=== PATIENT | female | born 1960 | race Caucasian/White ===

== ENCOUNTER → 2016-10-20 | Outpatient (CLI) | payer MEDICARE | LOC: SP 13:06 | PROVIDERS: ATTEND Nurse Practitioner | DX: R60.0 Localized edema (principal) | CPT/HCPCS: 93970 ==

== ENCOUNTER → 2017-02-21 | Outpatient (CLI) | payer MEDICARE ==
--- NOTE | 2017-02-21 15:54 | RADIOLOGY REPORT (SQ) ---
EXAM DESCRIPTION: OS CALCIS/HEEL BILAT 2 VIEWS COMPLETED DATE/TIME: 02/21/2017 3:45 pm REASON FOR STUDY: PAIN IN UNSPECIFIED FOOT M79.673 PAIN IN UNSPECIFIED FOOT COMPARISON: None. NUMBER OF VIEWS: Four views TECHNIQUE: Plantar and lateral images acquired of the right and left calcaneous. LIMITATIONS: None. FINDINGS: MINERALIZATION: Normal. BONES: No acute fracture or dislocation. No worrisome bone lesions. No significant osteophytes. JOINTS: No erosions. No claire-articular osteopenia. No chondrocalcinosis. SOFT TISSUES: No swelling. No calcifications. OTHER: No other significant finding. IMPRESSION: NEGATIVE STUDY OF THE RIGHT AND LEFT CALCANEOUS. NO EXPLANATION FOR PAIN. TECHNICAL DOCUMENTATION: JOB ID: [id number] [employer]- All Rights Reserved
== END ==
LOC: OD 15:22
PROVIDERS: ATTEND Nurse Practitioner
DX: M79.673 Pain in unspecified foot (principal)

== ENCOUNTER → 2017-05-18 | Outpatient (CLI) | payer MEDICARE ==
--- NOTE | 2017-05-19 16:08 | RADIOLOGY REPORT (SQ) ---
EXAM DESCRIPTION: TIBIA FIBULA LEFT COMPLETED DATE/TIME: 05/18/2017 5:16 pm REASON FOR STUDY: UNSPECIFIED OPEN WOUND, LEFT LOWER LEG, SEQUELA COMPARISON: None. NUMBER OF VIEWS: Two views. TECHNIQUE: Two radiographic images acquired of the left tibia and fibula to include the knee and ank le in at least one projection. LIMITATIONS: None. FINDINGS: MINERALIZATION: Normal. BONES: No acute fracture or dislocation. No worrisome bone lesions. SOFT TISSUES: No obvious swelling or foreign body. No soft tissue gas. OTHER: No other significant finding. IMPRESSION: NEGATIVE STUDY OF THE LEFT TIBIA AND FIBULA. NO RADIOGRAPHIC EVIDENCE OF ACUTE INJURY. TECHNICAL DOCUMENTATION: JOB ID: [id number] [email or web address]- All Rights Reserved
== END ==
LOC: RAD 16:39
PROVIDERS: ATTEND Nurse Practitioner
DX: S81.802S Unspecified open wound, left lower leg, sequela (principal); X58.XXXS Exposure to other specified factors, sequela

== ENCOUNTER → 2017-09-19 | Outpatient (CLI) | payer MEDICARE | LOC: WI 13:10 | PROVIDERS: ATTEND Nurse Practitioner | DX: Z12.31 Encounter for screening mammogram for malignant neoplasm of breast (principal) | CPT/HCPCS: 77067; G0202 ==

== ENCOUNTER 2017-09-23 17:16 | Emergency (ER) | payer MEDICARE ==
[2017-09-23] MEDS ORDERED: ONDANSETRON 4 MG TAB.RAPDIS PO ONE (17:56)
[2017-09-23] MEDS ORDERED: HYDROXYZINE PAMOATE 50 MG CAPSULE PO ONE (17:57)
--- NOTE | 2017-09-23 17:59 | ER Document Report ---
ED Medical Screen (RME) - General Chief Complaint: Anxiety Stated Complaint: WITHDRAWAL SYMPTOMS Time Seen by Provider: 09/23/17 17:56 Notes: Patient says that she is feeling as if she is in withdrawal from Xanax. She is previously been taking Xanax 1 mg 4 times a day, but her primary care provider stopped writing her prescriptions for it last week and she has not had any Xanax for a week. She says that she is grinding her teeth and feeling her heart is racing. Is nauseated but not vomiting. No significant shortness of breath. Patient has a history of lumpectomy for breast cancer, hypertension, depression and anxiety. Patient smokes 1 pack per day. Patient also drinks alcohol and has been drinking today. TRAVEL OUTSIDE OF THE [place] IN LAST 30 DAYS: No - Related Data Allergies/Adverse Reactions: codeine Allergy (Verified 09/23/17 17:19) Physical Exam - Vital signs Vitals: Temp Pulse Resp BP Pulse Ox 98.8 F 87 20 171/89 H 99 09/23/17 17:23 09/23/17 17:23 09/23/17 17:23 09/23/17 17:23 09/23/17 17:23 Course - Vital Signs Vital signs: Temp Pulse Resp BP Pulse Ox 98.8 F 87 20 171/89 H 99 09/23/17 17:23 09/23/17 17:23 09/23/17 17:23 09/23/17 17:23 09/23/17 17:23 Doctor's Discharge - Discharge Instructions: Anxiety ([facility])
[2017-09-23 19:04] LABS: ABSOLUTE LYMPHOCYTES (AUTO) 1.1 10^3/uL (0.5-4.7); ABSOLUTE MONOCYTES (AUTO) 0.3 10^3/uL (0.1-1.4); ABSOLUTE NEUT (AUTO) 6.4 10^3/uL (1.7-8.2); BASOPHILS % (AUTO) 0.6 % (0-2); EOSINOPHILS % (AUTO) 0.1 % (0-6); HEMATOCRIT 41.6 % (36.0-47.0); HEMOGLOBIN 14.6 g/dL (12.0-15.5); HGB HCT DIFFERENCE 2.2; LYMPHOCYTES % (AUTO) 13.5 % (13-45); MEAN CORPUSCULAR HEMOGLOBIN 35.5 pg (27.0-33.4); MEAN CORPUSCULAR HGB CONC 35.1 g/dL (32.0-36.0); MEAN CORPUSCULAR VOLUME 101 fl (80-97); MONOCYTES % (AUTO) 4.1 % (3-13); RED BLOOD COUNT 4.11 10^6/uL (3.72-5.28); RED CELL DISTRIBUTION WIDTH 12.4 % (11.5-14.0); SEGMENTED NEUTROPHILS % (AUTO) 81.7 % (42-78); WHITE BLOOD COUNT 7.8 10^3/uL (4.0-10.5)
[2017-09-23 19:21] LABS: ALANINE AMINOTRANSFERASE 37 U/L (9-52); ALBUMIN 4.8 g/dL (3.5-5.0); ALKALINE PHOSPHATASE 75 U/L (38-126); ANION GAP 14 (5-19); ASPARTATE AMINO TRANSFERASE 24 U/L (14-36); BILIRUBIN,DIRECT 0.2 mg/dL (0.0-0.4); BILIRUBIN,TOTAL 0.6 mg/dL (0.2-1.3); BLOOD UREA NITROGEN 11 mg/dL (7-20); CARBON DIOXIDE 23 mmol/L (22-30); CHLORIDE 100 mmol/L (98-107); CREATININE RESULT 0.64 mg/dL (0.52-1.25); GLUCOSE 101 mg/dL (75-110); SODIUM 137.4 mmol/L (137-145); TOTAL PROTEIN 7.5 g/dL (6.3-8.2)
[2017-09-23 19:23] LABS: ALCOHOL < 10 mg/dL (NONE DETECTED)
[2017-09-23 19:23] LABS: URINE BARBITURATES SCREEN NEGATIVE; URINE METHADONE SCREEN NEGATIVE; URINE OPIATES LOW NEGATIVE; URINE PHENCYCLIDINE SCREEN NEGATIVE
[2017-09-23 19:26] LABS: APPEARANCE,URINE SLIGHTLY-CLOUDY; BILIRUBIN,URINE NEGATIVE (NEGATIVE); GLUCOSE, URINE NEGATIVE (NEGATIVE); KETONES,URINE 20 mg/dL (NEGATIVE); LEUKOCYTE ESTERASE,URINE SMALL (NEGATIVE); NITRITE,URINE NEGATIVE (NEGATIVE); PROTEIN,URINE NEGATIVE (NEGATIVE); URINE SPECIFIC GRAVITY 1.018; UROBILINOGEN,URINE NEGATIVE mg/dL (<2.0)
[2017-09-23 19:37] VITALS: BP 143/72
--- NOTE | 2017-09-23 19:50 | ER Document Report ---
ED General - General Chief Complaint: Anxiety Stated Complaint: WITHDRAWAL SYMPTOMS Time Seen by Provider: 09/23/17 17:56 Notes: Patient says that she is feeling as if she is in withdrawal from Xanax. She is previously been taking Xanax 1 mg 4 times a day, but her primary care provider stopped writing her prescriptions for it last week and she has not had any Xanax for a week. She says that she is grinding her teeth and feeling her heart is racing. Is nauseated but not vomiting. No significant shortness of breath. Patient has a history of lumpectomy for breast cancer, hypertension, depression and anxiety. Patient smokes 1 pack per day. Patient also drinks alcohol and has been drinking today. TRAVEL OUTSIDE OF THE [place] IN LAST 30 DAYS: No - Related Data Allergies/Adverse Reactions: codeine Allergy (Verified 09/23/17 17:19) Past Medical History - Social History Smoking Status: Current Every Day Smoker Frequency of alcohol use: Heavy Drug Abuse: Prescription drugs - See HPI. Family History: Reviewed & Not Pertinent Patient has suicidal ideation: No Patient has homicidal ideation: No Endocrine Medical History: Denies: Hx Diabetes Mellitus Type 1, Hx Diabetes Mellitus Type 2 Malignancy Medical History: Reports: Hx Breast Cancer Psychiatric Medical History: Reports: Hx Anxiety, Hx Depression Past Surgical History: Reports: Hx Breast Surgery Review of Systems - Review of Systems Notes: REVIEW OF SYSTEMS: CONSTITUTIONAL : Denies fever. Very anxious and agitated. However, patient is alert and oriented and mentally lucid. EENT: Denies eye, ear, nose or mouth or throat pain or other symptoms. CARDIOVASCULAR: Denies chest pain. Feels her heart is racing. RESPIRATORY: Denies cough, chest congestion, or shortness of breath. GASTROINTESTINAL: Denies abdominal but is nauseated, not vomiting, and no diarrhea. GENITOURINARY: Denies difficulty or painful urinating, urinary frequency, blood in urine. MUSCULOSKELETAL: Denies back or neck pain. Denies joint pain or swelling. SKIN: Denies rash or skin lesions. NEUROLOGICAL: Denies LOC or altered mental status. Denies headache. Denies sensory loss or motor deficits. ALL OTHER SYSTEMS REVIEWED AND NEGATIVE. Physical Exam - Vital signs Vitals: Temp Pulse Resp BP Pulse Ox 98.8 F 87 20 171/89 H 99 09/23/17 17:23 09/23/17 17:23 09/23/17 17:23 09/23/17 17:23 09/23/17 17:23 Interpretation: Hypertensive - Mild - Notes Notes: PHYSICAL EXAMINATION: GENERAL: Well-appearing, i anxious and agitated and, at times, tearful. HEAD: Atraumatic, normocephalic. EYES: Pupils equal round and reactive to light, extraocular movements intact. ENT: oropharynx clear without exudates. Moist mucous membranes. NECK: Normal range of motion, supple. LUNGS: Breath sounds clear and equal bilaterally. A few scattered rhonchi are present bilaterally. HEART: Regular rate and rhythm without murmurs. ABDOMEN: Soft, nontender. No guarding or rebound. BACK: No tenderness throughout entire back. EXTREMITIES: Normal range of motion without pain. No swelling and no edema. Negative Homans bilaterally. NEUROLOGICAL: Normal speech, normal gait. Normal sensory, motor, and reflex exams. Awake, alert, and oriented x3. Cranial nerves normal. PSYCH: Anxious and somewhat agitated, but in control of her mental faculties. Denies suicidal thoughts. SKIN: Warm, dry, no rashes. Course - Re-evaluation Re-evalutation: 09/23/17 19:45 Patient says she feels a lot better except she now has a headache. Declined Tylenol. - Vital Signs Vital signs: Temp Pulse Resp BP Pulse Ox 98.2 F 77 16 143/72 H 96 09/23/17 19:37 09/23/17 19:37 09/23/17 19:37 09/23/17 19:37 09/23/17 19:37 - Laboratory Result Diagrams: 09/23/17 18:47 09/23/17 18:47 Laboratory results interpreted by me: 09/23/17 09/23/17 18:05 18:47 MCV 101 H MCH 35.5 H Seg Neutrophils % 81.7 H Urine Ketones 20 H Urine Blood SMALL H Ur Leukocyte Esterase SMALL H Discharge - Discharge Clinical Impression: Substance abuse withdrawal, Anxiety Condition: Stable Disposition: HOME, SELF-CARE Instructions: Anxiety ([facility]) Additional Instructions: Anxiety The physician feels that some of your health problems are being caused by anxiety. Anxiety affects your health in many ways. Anxiety alone can cause palpitations, sweats, chest pains, abdominal pains, shortness of breath, and headaches. It contributes to ulcer disease, high blood pressure, irritable bowel syndrome, and has been shown to cause flare-ups of many other diseases. Anxiety is not a simple disorder to treat. If the anxiety is due to recent life stresses, you may simply need time to "work through" the changes. If the anxiety is due to an underlying unhappiness with yourself or due to psychiatric disturbance, professional help will be needed. Your physician can refer you for further help if needed. Anti-anxiety medication is occasionally given if the stress is acute or if you are having trouble sleeping. Chronic or frequent use of these medications is not a good idea because the body becomes reliant on it, preventing you from dealing with life's normal stresses. INSTRUCTIONS FOR HOME CARE FOLLOWING DRUG OVERDOSAGE: The doctor feels it's safe for you to go home. You will need to be observed. If charcoal and a laxative was given to you, expect some loose black stools soon. Take no medications unless approved by a physician, including alcohol. If drowsy, lie on your stomach or side for sleeping to avoid aspiration if vomiting occurs. Take only liquids by mouth until there is no more nausea. You apparently have been taking too much of your Xanax. It would be best if you stop taking it entirely and not take it in the future. I am writing you a prescription for Vistaril to take as a substitute. It is a non-addicting medication that will help relax you and get you through the withdrawal symptoms. FOLLOW-UP CARE: If you have been referred to a physician for follow-up care, call the physician s office for an appointment as you were instructed or within the next two days. If you experience worsening or a significant change in your symptoms, notify the physician immediately or return to the Emergency Department at any time for re-evaluation. Prescriptions: Hydroxyzine Pamoate [Vistaril 50 mg Capsule] 50 mg PO Q6HP PRN #30 capsule PRN Reason:
== END 2017-09-23 19:37 | disposition home or self-care (01) ==
LOC: ER 17:16
DX: F13.239 Sedative, hypnotic or anxiolytic dependence with withdrawal, unspecified (principal); F41.9 Anxiety disorder, unspecified; R11.0 Nausea; R51 Headache; R09.89 Other specified symptoms and signs involving the circulatory and respiratory systems; I10 Essential (primary) hypertension; F17.200 Nicotine dependence, unspecified, uncomplicated; Z85.3 Personal history of malignant neoplasm of breast
CPT/HCPCS: 99283; 36415; 80307 ×2; 85025; 80053; 81001; A9270 ×2; S0119